=== PATIENT | male | born 1955 | race Caucasian/White ===

== ENCOUNTER → 2016-12-21 | Outpatient (CLI) | payer BC ==
[2016-12-21 08:40] LABS: ALT 35 U/L (21-72); AST 28 U/L (17-59); Cholesterol 143 mg/dL (<200); HDL Cholesterol 44 mg/dL (40-60); Triglycerides 73 mg/dL (<150)
== END | disposition home or self-care (01) ==
LOC: LABWHC1 07:51
PROVIDERS: ATTEND Internal Medicine Cardiovascular Disease
DX: E78.2 Mixed hyperlipidemia (principal)
CPT/HCPCS: 36415; 80061; 84450; 84460

== ENCOUNTER → 2018-01-10 | Outpatient (CLI) | payer BC ==
[2018-01-10 09:39] LABS: ALT 38 U/L (21-72); AST 24 U/L (17-59); Cholesterol 122 mg/dL (<200); HDL Cholesterol 41 mg/dL (40-60); LDL Cholesterol,Calculated 69 mg/dL (0-99); Triglycerides 58 mg/dL (<150)
== END | disposition home or self-care (01) ==
LOC: LABWHC1 08:23
PROVIDERS: ATTEND Internal Medicine Cardiovascular Disease
DX: E78.2 Mixed hyperlipidemia (principal)
CPT/HCPCS: 36415; 80061; 84450; 84460

== ENCOUNTER → 2019-01-28 | Outpatient (CLI) | payer BC ==
[2019-01-28 16:49] LABS: LDL Cholesterol,Calculated 93.2 mg/dL (0.0-131.0); VLDL Calculation 10.8 mg/dL (5.00-40.00)
== END | disposition home or self-care (01) ==
LOC: LABWHC1 08:53
PROVIDERS: ATTEND Internal Medicine Cardiovascular Disease
DX: E78.2 Mixed hyperlipidemia (principal)
CPT/HCPCS: 36415; 80061; 84450; 84460

== ENCOUNTER → 2020-06-23 | Outpatient (CLI) | payer BC ==
[2020-06-23 11:35] LABS: HCT 47.3 % (39.0-53.0); HGB 15.2 gm/dL (13.0-17.5); MCH 29.4 pg (25.0-35.0); MCHC 32.1 g/dL (31.0-37.0); MCV 91.6 fL (80.0-100.0); Mean Platelet Volume 7.2; Platelet Count 251 k/uL (150-450); RBC 5.17 m/uL (4.30-5.90); RDW 12.5 % (11.5-15.5)
[2020-06-23 11:41] LABS: African American GFR (CKD) >90 (>60 ml/min/1.73 sqM); Anion Gap 1 mmol/L; Blood Urea Nitrogen 18 mg/dL (9-20); Carbon Dioxide 32 mmol/L (22-30); Chloride 106 mmol/L (98-107); Non-African American GFR(CKD) 85 (>60 ml/min/1.73 sqM); Potassium 5.1 mmol/L (3.5-5.1); Sodium 139 mmol/L (137-145)
== END | disposition home or self-care (01) ==
LOC: LABPAT 09:28
PROVIDERS: ATTEND Internal Medicine Cardiovascular Disease
DX: Z01.818 Encounter for other preprocedural examination (principal); R06.02 Shortness of breath
CPT/HCPCS: 36415; 80051; 82565; 84520; 85027

== ENCOUNTER → 2020-06-24 | Day surgery (SDC) | payer BC ==
[2020-06-23 11:45] VITALS: BMI 26.3
[~2020-06-24] MED LIST: ALPRAZolam 0.25 MG TAB PO PRN; ALPRAZolam 0.5 MG TAB PO PRN; ASPIRIN 325 MG TAB PO STA; ATORVASTATIN 80 MG TAB PO STA; IOPAMIDOL-370 125ML BTL INJ ONE; LIDOCAINE 1% INJ 10MG/ML (20 ML MDV) SQ ONE; NITROGLYCERIN SL TABS 0.4 MG TAB SUBLINGUAL PRN; RX INFO: IV CONTRAST WAS GIVEN 1 EACH MISC MISCELLANE PRN; SODIUM CHLORIDE 0.9% 1,000 ML IV ONE; SODIUM CHLORIDE 0.9% 1,000 ML IV SCH; SODIUM CHLORIDE 0.9% 1,000 ML in EMPTY BAG 1 BAG IV ONE; fentaNYL (PF) 50 MCG/ML 2 ML AMP IVP ONE
[2020-06-24 09:49] VITALS: RESP 16; TEMP 97.9
[2020-06-24] MEDS: MIDAZOLAM 2 MG/2 ML VIAL IVP ONE ×2 (10:40→10:45)
--- NOTE | 2020-06-24 12:08 | CC ---
CARDIAC CATHETERIZATION REPORT INDICATION: Shortness of breath with abnormal stress test. PROCEDURE NOTE: After obtaining informed consent, left heart catheterization, coronary angiogram are performed via the right femoral artery using standard Fanny catheters. Patient tolerated the procedure well without any obvious immediate complication. A femoral angiogram was performed and decision was made for manual hemostasis. FINDINGS: 1. HEMODYNAMICS: Left ventricular end-diastolic pressure is 15 mm, there is no significant gradient across the aortic valve. 2. LEFT VENTRICULOGRAM: Left ventriculogram is not performed. 3. ANGIOGRAPHIC DATA: LEFT MAIN CORONARY ARTERY: left main coronary artery appears calcified but is free of significant stenosis. Divides into left anterior descending coronary artery and circumflex coronary artery. circumflex coronary artery is a nondominant vessel and is free of significant stenosis. LAD shows a 42% atherosclerotic plaque in its mid portion, which did not change significantly compared to the angiogram from 2016. RIGHT CORONARY ARTERY: Right coronary artery was stented in the proximal portion of the stented segment appears patent. CONCLUSION: 1. Patent stent within the right coronary artery. 2. Jeex-kt-ddcrhvoy disease involving mid LAD. PLAN: I reviewed angiographic data with the patient and told him that he does not need a stent and that his management is going to be in the form of risk factor modification, optimal medical therapy. MMODL / IJN: [id number] /
--- NOTE | 2020-06-24 12:13 | LTR ---
DATE OF SERVICE: 06/24/2020 RE: Chris Irizarry Dear Dr. Resendez; I performed cardiac catheterization on Chris Irizarry, a detailed catheterization note is enclosed for your records. In brief, the cardiac catheterization reveals a patent stent within the right coronary artery and the disease in the LAD is unchanged. Hence, the plan is to treat him with optimal medical therapy and risk factor modification. Thank you for giving us the privilege to participate in the care of this pleasant gentleman. Sincerely, MD JASON Santamaria / CARMELINA: [id number] /
[2020-06-24 15:30] VITALS: BP 115/71; PULSE 55
== END ==
LOC: CATHCVL 09:18
PROVIDERS: ATTEND Internal Medicine Cardiovascular Disease
DX: I25.10 Atherosclerotic heart disease of native coronary artery without angina pectoris (principal); I25.84 Coronary atherosclerosis due to calcified coronary lesion; I10 Essential (primary) hypertension; E78.5 Hyperlipidemia, unspecified; R94.39 Abnormal result of other cardiovascular function study; Z95.5 Presence of coronary angioplasty implant and graft; Z82.49 Family history of ischemic heart disease and other diseases of the circulatory system; Z87.891 Personal history of nicotine dependence; Z79.82 Long term (current) use of aspirin; Z79.899 Other long term (current) drug therapy; Z88.8 Allergy status to other drugs, medicaments and biological substances
CPT/HCPCS: 93458; C1769 ×2; C1894; J2250; J2001; J3010; Q9967

== ENCOUNTER 2020-11-19 11:55 | Observation (INO) | payer BC ==
[2020-11-19] MEDS ORDERED: SODIUM CHLORIDE 0.9% 500 ML 500 ML IV ONE (12:36)
[2020-11-19] MEDS ORDERED: SODIUM CHLORIDE 0.9% 1,000 ML IV ONE (12:36)
[2020-11-19] MEDS ORDERED: ACETAMINOPHEN TAB 500 MG TAB PO STA (12:36)
--- NOTE | 2020-11-19 12:37 | ED ---
General Adult HPI - General Chief complaint: Shortness of Breath Stated complaint: SOB, Fever Time Seen by Provider: 11/19/20 12:05 Source: patient, RN notes reviewed, old records reviewed Mode of arrival: wheelchair Limitations: no limitations - History of Present Illness Initial comments: This is a 65-year-old male who states he has been having symptoms for 14 days. Patient states his got cold about 18 days ago. Patient states he's had a cough and some shortness of breath complains of nausea and occasional abdominal pain. Patient states she's not nauseated now he is not having abdominal pain patient states he is not eating or drinking much because he lost his taste and smell. Patient states he just feels extremely fatigued and achy. Patient denies any lightheadedness or dizziness. Patient denies any chest pain or palpitations. Patient denies any diarrhea. - Related Data Home Medications Medication Instructions Recorded Confirmed Aspirin [Adult Low Dose Aspirin EC] 81 mg PO DAILY 06/23/20 11/19/20 Simvastatin 40 mg PO HS 06/23/20 11/19/20 Ibuprofen [Motrin Ib] 200 - 400 mg PO Q4H PRN 11/19/20 11/19/20 Losartan [Cozaar] 25 mg PO DAILY 11/19/20 11/19/20 Nitroglycerin Sl Tabs [Nitrostat] 0.4 mg SL Q5M PRN 11/19/20 11/19/20 Allergies Allergy/AdvReac Type Severity Reaction Status Date / Time venom-honey bee Allergy Severe Anaphylaxis Verified 11/19/20 13:07 Review of Systems ROS Statement: Those systems with pertinent positive or pertinent negative responses have been documented in the HPI. ROS Other: All systems not noted in ROS Statement are negative. Past Medical History Past Medical History: Eye Disorder, GERD/Reflux, Hypertension Additional Past Medical History / Comment(s): 08/26/15 Pt presented to [facility] with having been at work that morning and having tingling and weakness to BUE along with chest tightness and feeling hot and sweaty and mildly nauseated. He transferred to [facility] for catheterization. Other HX: extreme phtophobia bilateral xerophtalmia. History of Any Multi-Drug Resistant Organisms: None Reported Past Surgical History: Heart Catheterization With Stent Additional Past Surgical History / Comment(s): 1/21/16 PTCA with stent mid RCA. Past Anesthesia/Blood Transfusion Reactions: No Reported Reaction Date of Last Stent Placement:: 08/27/15 Past Psychological History: No Psychological Hx Reported Past Alcohol Use History: None Reported Past Drug Use History: None Reported - Past Family History Father Family Medical History: Diabetes Mellitus, Hypertension Additional Family Medical History / Comment(s): Father is alive and 82 yrs old. He has an abdominal aortic aneurysm. Mother Family Medical History: Diabetes Mellitus, Hyperlipidemia Additional Family Medical History / Comment(s): Mother is alive and in her late 70's. General Exam - General Exam Comments Initial Comments: GENERAL: Patient is well-developed and well-nourished. Patient is nontoxic and well- hydrated and is in mild distress. ENT: Neck is soft and supple. No significant lymphadenopathy is noted. Oropharynx is clear. Moist mucous membranes. Neck has full range of motion without eliciting any pain. EYES: The sclera were anicteric and conjunctiva were pink and moist. Extraocular movements were intact and pupils were equal round and reactive to light. Eyelids were unremarkable. PULMONARY: Unlabored respirations. Good breath sounds bilaterally. No audible rales rhonchi or wheezing was noted. CARDIOVASCULAR: There is a regular rate and rhythm without any murmurs gallops or rubs. ABDOMEN: Soft and nontender with normal bowel sounds. No palpable organomegaly was noted. There is no palpable pulsatile mass. SKIN: Skin is clear with no lesions or rashes and otherwise unremarkable. NEUROLOGIC: Patient is alert and oriented x3. Cranial nerves II through XII are grossly intact. Motor and sensory are also intact. Normal speech, volume and content. Symmetrical smile. MUSCULOSKELETAL: Normal extremities with adequate strength and full range of motion. LYMPHATICS: No significant lymphadenopathy is noted PSYCHIATRIC: Normal psychiatric evaluation. Limitations: no limitations Course Vital Signs 11/19/20 11/19/20 12:05 15:59 Temperature 98.2 F Pulse Rate 73 64 Respiratory 21 18 Rate Blood Pressure 146/89 123/82 O2 Sat by Pulse 97 97 Oximetry Medical Decision Making - Medical Decision Making EKG shows normal sinus rhythm at 73 bpm OR interval 222 QRS is 76 QT interval 394 QTC is 434. Patient's EKG shows no ST segment elevation or depression Chest x-ray shows opacification some bilateral lower lobes. Computed tomography scan did not show any pulmonary embolism however it showed a consolidated right middle lobe pneumonia versus significant atelectasis. I started the patient on antibiotics. I spoke with Dr. Resendez he agreed to admit the patient admitted the patient I wrote admit orders I consult pulmonary - Lab Data Result diagrams: 11/19/20 12:46 11/19/20 12:46 Lab Results 11/19/20 11/19/20 11/19/20 Range/Units 12:46 12:46 12:46 WBC 4.8 (3.8-10.6) k/uL RBC 5.54 (4.30-5.90) m/uL Hgb 16.3 (13.0-17.5) gm/dL Hct 49.6 (39.0-53.0) % MCV 89.6 (80.0-100.0) fL MCH 29.5 (25.0-35.0) pg MCHC 32.9 (31.0-37.0) g/dL RDW 12.7 (11.5-15.5) % Plt Count 180 (150-450) k/uL MPV 8.7 Neutrophils % 52 % Lymphocytes % 36 % Monocytes % 7 % Eosinophils % 1 % Basophils % 2 % Neutrophils # 2.5 (1.3-7.7) k/uL Lymphocytes # 1.7 (1.0-4.8) k/uL Monocytes # 0.3 (0-1.0) k/uL Eosinophils # 0.0 (0-0.7) k/uL Basophils # 0.1 (0-0.2) k/uL D-Dimer (<0.60) mg/L FEU Sodium 137 (137-145) mmol/L Potassium 4.2 (3.5-5.1) mmol/L Chloride 102 (98-107) mmol/L Carbon Dioxide 24 (22-30) mmol/L Anion Gap 11 mmol/L BUN 14 (9-20) mg/dL Creatinine 1.02 (0.66-1.25) mg/dL Est GFR (CKD-EPI)AfAm >90 (>60 ml/min/1.73 sqM) Est GFR (CKD-EPI)NonAf 78 (>60 ml/min/1.73 sqM) Glucose 97 (74-99) mg/dL Plasma Lactic Acid Jean-Claude (0.7-2.0) mmol/L Calcium 9.0 (8.4-10.2) mg/dL Magnesium 2.1 (1.6-2.3) mg/dL Total Bilirubin 0.8 (0.2-1.3) mg/dL AST 53 (17-59) U/L ALT 36 (4-49) U/L Alkaline Phosphatase 82 (38-126) U/L Total Protein 6.9 (6.3-8.2) g/dL Albumin 4.1 (3.5-5.0) g/dL Coronavirus (PCR) Detected A (Not Detectd) 11/19/20 11/19/20 Range/Units 12:46 15:20 WBC (3.8-10.6) k/uL RBC (4.30-5.90) m/uL Hgb (13.0-17.5) gm/dL Hct (39.0-53.0) % MCV (80.0-100.0) fL MCH (25.0-35.0) pg MCHC (31.0-37.0) g/dL RDW (11.5-15.5) % Plt Count (150-450) k/uL MPV Neutrophils % % Lymphocytes % % Monocytes % % Eosinophils % % Basophils % % Neutrophils # (1.3-7.7) k/uL Lymphocytes # (1.0-4.8) k/uL Monocytes # (0-1.0) k/uL Eosinophils # (0-0.7) k/uL Basophils # (0-0.2) k/uL D-Dimer 1.03 H (<0.60) mg/L FEU Sodium (137-145) mmol/L Potassium (3.5-5.1) mmol/L Chloride (98-107) mmol/L Carbon Dioxide (22-30) mmol/L Anion Gap mmol/L BUN (9-20) mg/dL Creatinine (0.66-1.25) mg/dL Est GFR (CKD-EPI)AfAm (>60 ml/min/1.73 sqM) Est GFR (CKD-EPI)NonAf (>60 ml/min/1.73 sqM) Glucose (74-99) mg/dL Plasma Lactic Acid Jean-Claude 1.5 (0.7-2.0) mmol/L Calcium (8.4-10.2) mg/dL Magnesium (1.6-2.3) mg/dL Total Bilirubin (0.2-1.3) mg/dL AST (17-59) U/L ALT (4-49) U/L Alkaline Phosphatase (38-126) U/L Total Protein (6.3-8.2) g/dL Albumin (3.5-5.0) g/dL Coronavirus (PCR) (Not Detectd) Disposition Clinical Impression: Pneumonia, COVID-19 Disposition: ADMITTED IP TO THIS HOSP Referrals: Renaldo Resendez DO [Primary Care Provider] - 1-2 days Time of Disposition: 16:29
[2020-11-19 13:21] LABS: Basophils # (A) 0.1 k/uL (0-0.2); Basophils % (A) 2 %; Eosinophils % (A) 1 %; HCT 49.6 % (39.0-53.0); HGB 16.3 gm/dL (13.0-17.5); Lymphocytes # (A) 1.7 k/uL (1.0-4.8); Lymphocytes % (A) 36 %; MCH 29.5 pg (25.0-35.0); MCHC 32.9 g/dL (31.0-37.0); MCV 89.6 fL (80.0-100.0); Mean Platelet Volume 8.7; Monocytes # (A) 0.3 k/uL (0-1.0); Monocytes % (A) 7 %; Neutrophils # (A) 2.5 k/uL (1.3-7.7); Neutrophils % (A) 52 %; Platelet Count 180 k/uL (150-450); RBC 5.54 m/uL (4.30-5.90); RDW 12.7 % (11.5-15.5); WBC 4.8 k/uL (3.8-10.6)
[2020-11-19 13:39] LABS: ALT 36 U/L (4-49); AST 53 U/L (17-59); African American GFR (CKD) >90 (>60 ml/min/1.73 sqM); Albumin 4.1 g/dL (3.5-5.0); Alkaline Phosphatase 82 U/L (38-126); Anion Gap 11 mmol/L; Blood Urea Nitrogen 14 mg/dL (9-20); Carbon Dioxide 24 mmol/L (22-30); Chloride 102 mmol/L (98-107); Glucose 97 mg/dL (74-99); Magnesium 2.1 mg/dL (1.6-2.3); Non-African American GFR(CKD) 78 (>60 ml/min/1.73 sqM); Potassium 4.2 mmol/L (3.5-5.1); Sodium 137 mmol/L (137-145); Total Bilirubin 0.8 mg/dL (0.2-1.3); Total Protein 6.9 g/dL (6.3-8.2)
--- NOTE | 2020-11-19 13:43 | XR ---
EXAMINATION TYPE: XR chest 1V portable DATE OF EXAM: 11/19/2020 COMPARISON: NONE HISTORY: Redness of breath and fever TECHNIQUE: Single frontal view of the chest is obtained. FINDINGS: Patchy airspace disease is present at the right lung. Patient is rotated. No evident pneum othorax or pleural effusion. Cardiac mediastinal silhouette is within normal limits. IMPRESSION: Correlate for pneumonia, follow-up suggested
--- NOTE | 2020-11-19 14:55 | CT ---
EXAMINATION TYPE: CT chest angio for PE DATE OF EXAM: 11/19/2020 COMPARISON: Chest x-ray earlier today HISTORY: Difficulty breathing and fever. CT DLP: 352.8 mGycm Automated exposure control for dose reduction was used. CONTRAST: CT Chest for pulmonary embolism performed with with IV Contrast, patient injected with 100 mL of Isov ue 370. FINDINGS: LUNGS: Right lower lobe shows extensive groundglass opacity and organizing consolidation. Left lung i s clear. No pleural effusion or pneumothorax seen bilaterally. MEDIASTINUM: There is slightly suboptimal study with some contrast in the aorta most dense contrast i n the SVC. There becomes some heterogeneity in the periphery but no convincing CT evidence for acute pulmonary embolism. There are enlarged right hilar lymph nodes may be reactive. No pericardial effu milton is seen. No cardiomegaly. [id number] right atrial dilatation. Moderate to severe three-ve ssel coronary artery calcification. Ascending aorta measures up to 3.8 cm in diameter. OTHER: No additional significant abnormality is seen. IMPRESSION: Right lower lobar pneumonia. Suboptimal study without acute pulmonary embolism.
[2020-11-19] MEDS ORDERED: cefTRIAXone IN SWFI 1,000 MG/10 ML SYRINGE IVP STA (15:07)
[2020-11-19] MEDS ORDERED: AZITHROMYCIN 500 MG in SODIUM CHLORIDE 0.9% 250 ML IVPB STA (16:29)
[2020-11-19] MEDS ORDERED: PNEUMONIA PROTOCOL UTILIZED 1 EACH MISC PO PRN (16:29)
--- NOTE | 2020-11-20 08:05 | XR ---
EXAMINATION TYPE: XR chest 1V DATE OF EXAM: 11/20/2020 COMPARISON: 11/20/2019 HISTORY: Shortness of breath TECHNIQUE: Single frontal view of the chest is obtained. FINDINGS: Right perihilar subsegmental infiltrate noted. There is a nodular 1 cm density in the left upper lobe. No pleural effusion or pneumothorax. Heart size normal. Increased interstitial markings suggested. IMPRESSION: Right perihilar and lower lobe pneumonia. Correlate for superimposed interstitial pneumon itis
[2020-11-20] MEDS ORDERED: NITROGLYCERIN SL TABS 0.4 MG TAB SUBLINGUAL PRN (11:05)
--- NOTE | 2020-11-20 11:18 | P.HPIM ---
History of Present Illness H&P Date: 11/20/20 Chief Complaint: Worsening shortness of breath, fatigue, headache, body aches This is a 65-year-old gentleman with past medical history of CAD, CO, stent to the mid RCA , hypertension ,gastroesophageal reflux disease, hypertension, former nicotine dependence and multiple other medical issues presented to the ER with complaints of worsening shortness of breath, fatigue, headache, body aches 2 weeks. Reports no cough, no fevers. Positive nausea, no vomiting or diarrhea. States his has been symptomatic for 3 weeks ago. His received BAM, he did not. He reports decreased appetite, loss of taste and loss of smell. Denies any lightheadedness dizziness or focal deficits. Denies any chest pain palpitations or shortness of breath. EKG reported sinus rhythm . Afebrile, normal WBC, maintaining O2 sats in the low to mid 90s on room air, respiratory rate 16-20, mild bradycardia. Hematology and chemistry panels unremarkable. D-dimer 1.03, coronavirus detected. Chest x-ray reporting patchy airspace disease in the right lung.Chest CTA suboptimal study reporting right lower lobe pneumonia, right lower lobe reporting extensive groundglass opacity and organizing consolidation,some contrast in the aorta most dense contrast in the SVC , no PE , enlarged right hilar lymph nodes possibly reactive, [id number] right atrial dilation, moderate to severe 3 vessel CAD, ascending aorta 3.8 cm. repeat chest x-ray reporting right perihilar subsegmental infiltrate noted, nodular 1 cm density in the left upper lobe, increased interstitial markings. Pneumonia protocol initiated including Rocephin and Zithromax along with IV fluid hydration. Review of Systems ROS Statement: Those systems with pertinent positive or pertinent negative responses have been documented in the HPI. ROS Other: All systems not noted in ROS Statement are negative. Past Medical History Past Medical History: Eye Disorder, GERD/Reflux, Hypertension Additional Past Medical History / Comment(s): 08/26/15 Pt presented to [facility] with having been at work that morning and having tingling and weakness to BUE along with chest tightness and feeling hot and sweaty and mildly nauseated. He transferred to [facility] for catheterization. Other HX: extreme photophobia bilateral xerophtalmia. History of Any Multi-Drug Resistant Organisms: None Reported Past Surgical History: Heart Catheterization With Stent Additional Past Surgical History / Comment(s): 08/27/15 PTCA with stent mid RCA. Past Anesthesia/Blood Transfusion Reactions: No Reported Reaction Date of Last Stent Placement:: 08/27/15 Past Psychological History: No Psychological Hx Reported Additional Psychological History / Comment(s): Pt resides with his spouse. He is independent. He uses no assistive device. He drives. Smoking Status: Former smoker Past Alcohol Use History: None Reported Past Drug Use History: None Reported - Past Family History Father Family Medical History: Diabetes Mellitus, Hypertension Additional Family Medical History / Comment(s): Father is alive and 82 yrs old. He has an abdominal aortic aneurysm. Mother Family Medical History: Diabetes Mellitus, Hyperlipidemia Additional Family Medical History / Comment(s): Mother is alive and in her late 70's. Medications and Allergies Home Medications Medication Instructions Recorded Confirmed Type Aspirin [Adult Low Dose Aspirin EC] 81 mg PO DAILY 06/23/20 11/19/20 History Simvastatin 40 mg PO HS 06/23/20 11/19/20 History Ibuprofen [Motrin Ib] 200 - 400 mg PO Q4H PRN 11/19/20 11/19/20 History Losartan [Cozaar] 25 mg PO DAILY 11/19/20 11/19/20 History Nitroglycerin Sl Tabs [Nitrostat] 0.4 mg SL Q5M PRN 11/19/20 11/19/20 History Allergies Allergy/AdvReac Type Severity Reaction Status Date / Time venom-honey bee Allergy Severe Anaphylaxis Verified 11/19/20 17:19 Physical Exam Vitals: Vital Signs Temp Pulse Pulse Pulse Resp BP BP 11/20/20 09:06 11/20/20 08:00 56 L 56 L 18 11/20/20 07:00 97.9 F 56 L 18 124/79 11/20/20 02:24 98.5 F 62 16 124/73 11/19/20 19:25 98.0 F 56 L 20 136/80 11/19/20 17:30 11/19/20 15:59 64 18 123/82 11/19/20 12:05 98.2 F 73 21 146/89 Pulse Ox 11/20/20 09:06 92 L 11/20/20 08:00 11/20/20 07:00 92 L 11/20/20 02:24 96 11/19/20 19:25 94 L 11/19/20 17:30 95 11/19/20 15:59 97 11/19/20 12:05 97 Intake and Output 11/19/20 11/20/20 11/20/20 22:59 06:59 14:59 Other: Voiding Method Toilet Toilet Urinal Urinal # Voids 1 1 1 Weight 90.718 kg PHYSICAL EXAM: VITAL SIGNS: As above GENERAL: Sitting up in bed, no acute distress, fatigued HEENT: Conjunctivae normal. eyes normal. NECK: No JVD. No thyroid enlargement. No LNs CARDIOVASCULAR: S1, S2 regular. No murmur RESPIRATION: Unlabored, Breath sounds diminished in the bases. No rhonchi or crackles. No bronchial breathing. ABDOMEN: Soft, nontender . No guarding. no masses palpable. No ascites, No hepatosplenomegaly.Bowel sounds heard. LEGS: No edema. no swelling PSYCHIATRY: Alert and oriented X3, mood and affect normal. NERVOUS SYSTEM: Cranial N 2-12 grossly normal. Moves all 4 limbs. Diffuse we akness No focal deficits. Strength and sensation grossly intact.. Skin: Warm and dry, no rash Results CBC & Chem 7: 11/19/20 12:46 11/19/20 12:46 Labs: Abnormal Lab Results - Last 24 Hours (Table) 11/19/20 11/19/20 Range/Units 12:46 12:46 D-Dimer 1.03 H (<0.60) mg/L FEU Coronavirus (PCR) Detected A (Not Detectd) Thrombosis Risk Factor Assmnt - Choose All That Apply Any of the Below Risk Factors Present?: Yes Each Factor Represents 1 point: Obesity (BMI >25), Serious lung disease incl. pneumonia (< 1month) Other Risk Factors: Yes Each Risk Factor Represents 2 Points: Age 61-74 years Other congenital or acquired thrombophilia - If yes, enter type in comment: No Thrombosis Risk Factor Assessment Total Risk Factor Score: 4 Thrombosis Risk Factor Assessment Level: Moderate Risk Assessment and Plan Assessment: COVID-19 pneumonia, superimposed interstitial pneumonitis,symptoms present 2 weeks. CTA reporting no PE, positive right lower lobe consolidation Nodular 1 cm density in left upper lobe reported per chest X Prior remote history of nicotine dependence Gastroesophageal reflux disease Hypertension CAD, history of CO and stent [id number] right atrial dilation, moderate to severe 3 vessel CAD, per CTA ascending aorta 3.8 cm. Plan:Continue on current medication regime ,monitoring and symptomatic treatment. Continue on antibiotics, Covid cocktail ordered. Pulmonary consult in place regarding abnormal CT with recommendations pending. CTA reporting moderate to severe 3 vessel CAD, echo ordered. The impression and plan of care has been dictated as directed. : I performed a history and examination of this patient, discussed the same with the dictator. I agree with the dictator's note ,documented as a scribe. Any additional findings or plans will be noted.
[2020-11-20] MEDS: ZINC SULFATE 220 MG CAP PO SCH (11:34)
[2020-11-20] MEDS: PANTOPRAZOLE 40 MG/10 ML VIAL IVP SCH (11:34)
[2020-11-20] MEDS: CHOLECALCIFEROL 25 MCG (1000 IU) TABLET PO SCH (11:34)
[2020-11-20] MEDS: DEXAMETHASONE SOD PHOSPHATE 10 MG/ML 1 ML VIAL IV SCH (11:34)
[2020-11-20] MEDS: ASCORBIC ACID 500 MG TAB PO SCH ×2 (11:35→20:48)
--- NOTE | 2020-11-20 11:55 | ECHOF ---
Referral Reason:lv fx MEASUREMENTS -------- HEIGHT: 177.8 cm WEIGHT: 90.7 kg BP: 124/79 RVIDd: 3.0 cm (< 3.3) IVSd: 1.2 cm (0.6 - 1.1) LVIDd: 4.1 cm (3.9 - 5.3) LVPWd: 1.1 cm (0.6 - 1.1) IVSs: 1.7 cm LVIDs: 2.6 cm LVPWs: 1.3 cm LA Diam: 3.2 cm (2.7 - 3.8) Ao Diam: 3.6 cm (2.0 - 3.7) AV Cusp: 2.5 cm (1.5 - 2.6) MV EXCURSION: 14.577 mm (> 18.000) MV EF SLOPE: 59 mm/s (70 - 150) EPSS: 0.5 cm MV E Robson: 0.74 m/s MV DecT: 305 ms MV A Robson: 0.58 m/s MV E/A Ratio: 1.27 RAP: 5.00 mmHg RVSP: 35.07 mmHg FINDINGS -------- Sinus rhythm. This was a technically adequate study. The left ventricular size is normal. There is borderline concentric left ventricular hypertrophy. Overall left ventricular systolic function is normal with, an EF between 60 - 65 %. The right ventricle is normal in size. The left atrium is normal in size. The right atrium is normal in size. Interatrial and interventricular septum intact. There is mild aortic regurgitation. Mild mitral regurgitation is present. Mild tricuspid regurgitation present. Right ventricular systolic pressure is normal at < 35 mmHg. There is no pulmonic regurgitation present. The aortic root size is normal. Normal inferior vena cava with normal inspiratory collapse consistent with estimated right atrial pre ssure of 5 mmHg. There is no pericardial effusion. CONCLUSIONS -------- 1. The left ventricular size is normal. 2. There is borderline concentric left ventricular hypertrophy. 3. Overall left ventricular systolic function is normal with, an EF between 60 - 65 %. 4. There is mild aortic regurgitation. 5. Mild mitral regurgitation is present. 6. Mild tricuspid regurgitation present. 7. There is no pericardial effusion. SENIOR QUALITY MANAGER: Kami Ortiz [facility]
[2020-11-20 13:42] VITALS: BMI 28.7
[2020-11-20] MEDS: INSULIN ASPART (NovoLOG) 100 UNIT/ML VIAL SQ SCH ×3 (14:14→20:48)
[2020-11-20] MEDS ORDERED: AZITHROMYCIN 500 MG TAB PO SCH (16:00)
[2020-11-20 16:52] LABS: Glucose,Whole Blood 152 mg/dL (75-99)
--- NOTE | 2020-11-20 17:46 | P.CNPUL ---
History of Present Illness Consult date: 11/20/20 Reason for consult: hypoxemia History of present illness: 65-year-old male patient, multiple comorbidities, presented with worsening shortness of breath, fatigue and headache and body aches for more than 2 weeks of duration. He also had some nausea without any emesis or diarrhea. His been symptomatically for at least 3 weeks. His was also symptomatic and she received the monoclonal anti-bodies. The patient himself did not receive any treatment. He comes into the hospital for worsening shortness of breath and other symptoms. His d-dimer is at 1.03. His inflammatory markers have not been checked. LFTs are normal, white cell count is normal, electrolytes are all within normal limits. Chest x-ray showing some limited perihilar pulmonary infiltrates worse on the right. Currently patient is on oxygen on room air. The CT angiogram was also done that showed noted 70 pulmonary embolism. There was right lower lobe pulmonary infiltrate/groundglass changes along with some areas of consolidation. Some enlarged right hilar lymph node was seen, likely reactive. Among the patient's comorbid conditions are CAD, hypertension, acid reflux, and hyperlipidemia. Review of Systems Constitutional: Reports fatigue, Reports poor appetite, Reports weakness Eyes: denies as per HPI, denies blurred vision, denies bulging eye, denies decreased vision, denies diplopia, denies discharge, denies dry eye, denies irritation, denies itching, denies pain, denies photophobia, denies loss of peripheral vision, denies loss of vision, denies tunnel vision/blind spots Ears: deny: decreased hearing, ear discharge, earache, tinnitus Ears, nose, mouth and throat: Reports as per HPI Breasts: absent: as per HPI, gynecomastia Cardiovascular: Reports dyspnea on exertion Respiratory: Reports cough, Reports dyspnea Gastrointestinal: Reports as per HPI, Reports nausea Genitourinary: Reports as per HPI Musculoskeletal: Reports as per HPI Musculoskeletal: absent: ankle pain, ankle stiffness, ankle swelling, as per HPI, elbow pain, elbow stiffness, elbow swelling, foot pain, foot stiffness, foot swelling, hand pain, hand stiffness, hand swelling, hip pain, hip stiffness, hip swelling, knee pain, knee stiffness, knee swelling, shoulder pain, shoulder stiffness, shoulder swelling, wrist pain, wrist stiffness, wrist swelling Integumentary: Reports as per HPI Neurological: Reports as per HPI Psychiatric: Reports as per HPI Endocrine: Reports fatigue Hematologic/Lymphatic: Reports as per HPI Allergic/Immunologic: Reports as per HPI Past Medical History Past Medical History: Eye Disorder, GERD/Reflux, Hypertension Additional Past Medical History / Comment(s): 08/26/15 Pt presented to [facility] with having been at work that morning and having tingling and weakness to BUE along with chest tightness and feeling hot and sweaty and mildly nauseated. He transferred to [facility] for catheterization. Other HX: extreme photophobia bilateral xerophtalmia. History of Any Multi-Drug Resistant Organisms: None Reported Past Surgical History: Heart Catheterization With Stent Additional Past Surgical History / Comment(s): 08/27/15 PTCA with stent mid RCA. Past Anesthesia/Blood Transfusion Reactions: No Reported Reaction Date of Last Stent Placement:: 08/27/15 Past Psychological History: No Psychological Hx Reported Additional Psychological History / Comment(s): Pt resides with his spouse. He is independent. He uses no assistive device. He drives. Smoking Status: Former smoker Past Alcohol Use History: None Reported Past Drug Use History: None Reported - Past Family History Father Family Medical History: Diabetes Mellitus, Hypertension Additional Family Medical History / Comment(s): Father is alive and 82 yrs old. He has an abdominal aortic aneurysm. Mother Family Medical History: Diabetes Mellitus, Hyperlipidemia Additional Family Medical History / Comment(s): Mother is alive and in her late 70's. Medications and Allergies Home Medications Medication Instructions Recorded Confirmed Type Aspirin [Adult Low Dose Aspirin EC] 81 mg PO DAILY 06/23/20 11/19/20 History Simvastatin 40 mg PO HS 06/23/20 11/19/20 History Ibuprofen [Motrin Ib] 200 - 400 mg PO Q4H PRN 11/19/20 11/19/20 History Losartan [Cozaar] 25 mg PO DAILY 11/19/20 11/19/20 History Nitroglycerin Sl Tabs [Nitrostat] 0.4 mg SL Q5M PRN 11/19/20 11/19/20 History Allergies Allergy/AdvReac Type Severity Reaction Status Date / Time venom-honey bee Allergy Severe Anaphylaxis Verified 11/19/20 17:19 Physical Exam Vitals: Vital Signs Temp Pulse Pulse Resp BP Pulse Ox 11/20/20 15:00 97.7 F 66 20 176/79 95 04/16/21 14:00 56 L 56 L 18 11/20/20 09:06 92 L 11/20/20 08:00 56 L 56 L 18 11/20/20 07:00 97.9 F 56 L 18 124/79 92 L 11/20/20 02:24 98.5 F 62 16 124/73 96 11/19/20 19:25 98.0 F 56 L 20 136/80 94 L 11/19/20 17:30 95 Intake and Output 11/20/20 11/20/20 11/20/20 06:59 14:59 22:59 Other: Voiding Method Toilet Urinal # Voids 1 2 Weight 90.718 kg GENERAL: Sitting up in bed, no acute distress, fatigued HEENT: Conjunctivae normal. eyes normal. NECK: No JVD. No thyroid enlargement. No LNs CARDIOVASCULAR: S1, S2 regular. No murmur RESPIRATION: Unlabored, Breath sounds diminished in the bases. No rhonchi or crackles. No bronchial breathing. ABDOMEN: Soft, nontender . No guarding. no masses palpable. No ascites, No hepatosplenomegaly.Bowel sounds heard. LEGS: No edema. no swelling PSYCHIATRY: Alert and oriented X3, mood and affect normal. NERVOUS SYSTEM: Cranial N 2-12 grossly normal. Moves all 4 limbs. Diffuse weakness No focal deficits. Strength and sensation grossly intact.. Skin: Warm and dry, no rash Results - Laboratory Findings CBC and BMP: 11/19/20 12:46 11/19/20 12:46 PT/INR, D-dimer D-Dimer 1.03 mg/L FEU (<0.60) H 11/19/20 12:46 Abnormal lab findings: Abnormal Labs 11/19/20 11/19/20 12:46 12:46 D-Dimer 1.03 H Coronavirus (PCR) Detected A - Diagnostic Findings Chest x-ray: image reviewed CT scan - chest: image reviewed Assessment and Plan Plan: 1 acute COVID-19 related pneumonia. Symptoms have started more than 3 weeks ago and the patient has been symptomatic since. The patient presented with worsening shortness of breath. There are bilateral ground glass pulmonary infiltrates with areas of consolidation worse in the right lower lobe area. Chest x-ray was noted. CT angiogram of the chest was noted. No evidence of any pulmonary embolism 2 left upper lobe pulmonary nodule, more so of an infiltrate or an area of groundglass change related to the pneumonia. This needs to be followed up with a later stage. I think this is related to the COVID-19 related pneumonia rather than malignancy. 3 coronary artery disease with previous DE and previous coronary stenting. 4 ascending aorta aneurysm measuring 3.8 cm in size 5 hypertension 6 hyperlipidemia 7 remote history of smoking Plan Patient has no major respiratory distress. Pulse ox on room air is no order of 95%. He does have bilateral groundglass pulmonary infiltrates. We'll give him a course of Decadron 6 with aggressive by mouth for the next 10 days. The left upper lobe pulmonary nodule is of no significance for now. This is to be monitored and a follow-up CAT scan of the chest can be done in 6 months time Lovenox 40 mg subcu for DVT prophylaxis Check pro-calcitonin level knowing that the infiltrate in the CAT scan of the chest is more so on the lobar distribution I think the antibiotics can be discontinued Discharge once stable and cleared by medicine. Oxygenation is being monitored for the next 24 hours here in the hospital.
[2020-11-20 20:24] LABS: Glucose,Whole Blood 157 mg/dL (75-99)
[2020-11-21 07:38] LABS: Glucose,Whole Blood 127 mg/dL (75-99)
[2020-11-21] MEDS: INSULIN ASPART (NovoLOG) 100 UNIT/ML VIAL SQ SCH ×2 (07:48→12:09)
[2020-11-21] MEDS: ASCORBIC ACID 500 MG TAB PO SCH (07:53)
[2020-11-21] MEDS: CHOLECALCIFEROL 25 MCG (1000 IU) TABLET PO SCH (07:53)
[2020-11-21] MEDS: DEXAMETHASONE SOD PHOSPHATE 10 MG/ML 1 ML VIAL IV SCH (07:53)
[2020-11-21] MEDS: ZINC SULFATE 220 MG CAP PO SCH (07:56)
[2020-11-21] MEDS: PANTOPRAZOLE 40 MG/10 ML VIAL IVP SCH (07:56)
[2020-11-21 08:19] VITALS: BP 118/76; PULSE 74; RESP 16; TEMP 97.7
[2020-11-21 11:54] LABS: Glucose,Whole Blood 150 mg/dL (75-99)
== END 2020-11-21 14:05 | disposition home or self-care (01) ==
LOC: EC 11:55 → 6NMEDSUR 16:38
PROVIDERS: ADMIT Family Medicine; ATTEND Family Medicine
DX: U07.1 COVID-19 (principal); J12.82 Pneumonia due to coronavirus disease 2019; K21.9 Gastro-esophageal reflux disease without esophagitis; I10 Essential (primary) hypertension; I25.10 Atherosclerotic heart disease of native coronary artery without angina pectoris; J84.89 Other specified interstitial pulmonary diseases; E78.5 Hyperlipidemia, unspecified; R59.0 Localized enlarged lymph nodes; I25.2 Old myocardial infarction; H53.143 Visual discomfort, bilateral; E66.9 Obesity, unspecified; Z68.28 Body mass index [BMI] 28.0-28.9, adult; Z79.82 Long term (current) use of aspirin; Z79.899 Other long term (current) drug therapy; Z91.030 Bee allergy status; Z87.891 Personal history of nicotine dependence; Z95.5 Presence of coronary angioplasty implant and graft; Z82.49 Family history of ischemic heart disease and other diseases of the circulatory system; Z83.3 Family history of diabetes mellitus
CPT/HCPCS: 96376; 96365; 96367; 96375 ×2; 96361; 99285; 36415; 94760; 93005; 93306; 85379; 80053; 83605; 83735; 85025; 87040; 84145; 87635; 71045 ×2; 71275; G0378 ×3; J1100 ×2; J0456; J0696 ×2; C9113 ×2; Q9967

== ENCOUNTER → 2021-06-04 | Outpatient (CLI) | payer BC ==
[2021-06-04 15:19] LABS: Chol/HDL Ratio 3.37 Ratio; LDL Cholesterol,Calculated 103.8 mg/dL (0.0-131.0); Triglycerides 60.8 mg/dL (0.00-149.00); VLDL Calculation 12.16 mg/dL (5.00-40.00)
== END | disposition home or self-care (01) ==
LOC: LABWHC1 09:00
PROVIDERS: ATTEND Internal Medicine Cardiovascular Disease
DX: E78.2 Mixed hyperlipidemia (principal)
CPT/HCPCS: 36415; 80061; 84450; 84460

== ENCOUNTER → 2023-06-20 | Outpatient (CLI) | payer BC ==
[2023-06-20 15:27] LABS: HCT 47.6 % (39.6-50.0); HGB 15.5 g/dL (13.0-17.0); MCH 29.8 pg (27.0-32.0); MCHC 32.6 g/dL (32.0-37.0); MCV 91.5 FL (80.0-97.0); Mean Platelet Volume 10.8 FL (9.5-12.2); NRBC Per 100 WBC 0 X 10*3/uL (0.00-0.01); Platelet Count 245 X 10*3/uL (140-440); WBC 7.12 X 10*3/uL (4.50-10.00)
[2023-06-20 15:36] LABS: ALT 20 U/L (10-49); AST 20 U/L (14-35); BUN/Creat Ratio 13.22 Ratio (12.00-20.00); Blood Urea Nitrogen 11.9 mg/dL (9.0-27.0); Calcium 9.7 mg/dL (8.7-10.3); Chloride 105 mmol/L (96-109); Chol/HDL Ratio 3.31 Ratio; Glucose 103 mg/dL (70-110); LDL Cholesterol,Calculated 95.6 mg/dL (0.0-131.0); Potassium 4.8 mmol/L (3.5-5.5); Sodium 141 mmol/L (135-145); VLDL Calculation 14.74 mg/dL (5.00-40.00)
== END | disposition home or self-care (01) ==
LOC: LABWHC1 11:15
PROVIDERS: ATTEND Family Medicine
DX: Z00.00 Encounter for general adult medical examination without abnormal findings (principal); E78.2 Mixed hyperlipidemia; R07.2 Precordial pain
CPT/HCPCS: 36415; 80048; 80061; 84450; 84460; 85027

== ENCOUNTER 2023-06-23 05:56 | Day surgery (SDC) | payer BC, MEDICARE ==
[~2023-06-23 05:56] MED LIST changes: -IOPAMIDOL-370 125ML BTL INJ ONE; -LIDOCAINE 1% INJ 10MG/ML (20 ML MDV) SQ ONE; -RX INFO: IV CONTRAST WAS GIVEN 1 EACH MISC MISCELLANE PRN; -SODIUM CHLORIDE 0.9% 1,000 ML IV ONE; -SODIUM CHLORIDE 0.9% 1,000 ML IV SCH; -SODIUM CHLORIDE 0.9% 1,000 ML in EMPTY BAG 1 BAG IV ONE; -fentaNYL (PF) 50 MCG/ML 2 ML AMP IVP ONE
[2023-06-23] MEDS ORDERED: SODIUM CHLORIDE 0.9% 1,000 ML in EMPTY BAG 1 BAG IV SCH (06:00)
[2023-06-23] MEDS ORDERED: SODIUM CHLORIDE 0.9% 1,000 ML IV ONE (06:12)
[2023-06-23 06:30] VITALS: RESP 16; TEMP 97.7
[2023-06-23] MEDS ORDERED: HEPARIN SODIUM,PORCINE 10,000 UNIT in SODIUM CHLORIDE 0.9% 1,000 ML IRRIGATION PRN (07:00)
[2023-06-23] MEDS ORDERED: HEPARIN SODIUM,PORCINE (1 ML) 2,500 UNIT in SODIUM CHLORIDE 0.9% 250 ML IRRIGATION PRN (07:00)
[2023-06-23] MEDS ORDERED: MIDAZOLAM 2 MG/2 ML VIAL IVP ONE (07:36)
[2023-06-23] MEDS ORDERED: fentaNYL (PF) 50 MCG/ML 2 ML AMP IVP ONE (07:36)
[2023-06-23] MEDS ORDERED: LIDOCAINE 1% INJ 10MG/ML (20 ML MDV) SQ ONE (07:37)
[2023-06-23] MEDS ORDERED: VERAPAMIL SYRINGE (5 MG/10 ML) INTRAARTER ONE (07:38)
[2023-06-23] MEDS ORDERED: HEPARIN SODIUM 1,000 UN/ML (10ML VL) IV ONE (07:41)
[2023-06-23] MEDS ORDERED: IOPAMIDOL-370 100ML BTL INJ ONE (07:48)
--- NOTE | 2023-06-23 09:04 | CC ---
CARDIAC CATHETERIZATION REPORT Left heart catheterization and coronary angiogram. INDICATION: Unstable angina. PROCEDURE NOTE: After obtaining informed consent, left heart catheterization and coronary angiogram were performed via the right radial artery using standard Fanny catheters. The patient tolerated the procedure well without any obvious immediate complications. FINDINGS: Right radial artery access was obtained using Seldinger technique. A 6-Vincentian sheath was placed. Catheters and wires were floated into the ascending aorta under fluoroscopic guidance. The patient received moderate conscious sedation. Total sedation time was 20 minutes. Received verapamil and heparin per protocol. TR band will be used for hemostasis. FINDINGS: HEMODYNAMICS: 1. Left ventricular end-diastolic pressure is 18 mm. There is no significant gradient across the aortic valve. 2. Left ventriculogram: Left ventriculogram is not performed. ANGIOGRAPHIC DATA: Right coronary artery: Right coronary artery is a large dominant vessel that was previously stented in the proximal portion. The stent appears patent with mild nonobstructive disease involving mid RCA. Left main coronary artery appears heavily calcified but is free of stenosis. It divides into left anterior descending coronary artery and circumflex coronary artery. LAD appears heavily calcified with a moderate area of atherosclerotic plaque in its midportion. There are no known focal significant obstructive lesions noted. CONCLUSIONS: Patent stent within the right coronary artery, calcified left coronary system with moderate atherosclerotic plaque in the mid LAD which remains unchanged compared to which appears very similar to an angiogram done in 2020. PLAN: I reviewed angiographic data with Dr. Jean, the import export agent who performed his previous intervention and the plan is to treat him with optimal medical therapy at this time. The patient does not need any percutaneous intervention. MMODL / IJN: [id number] /
[2023-06-23 10:55] VITALS: BP 125/69; PULSE 60
== END 2023-06-23 12:07 | disposition home or self-care (01) ==
LOC: CATHCVL 05:56
PROVIDERS: ATTEND Internal Medicine Cardiovascular Disease
DX: I25.10 Atherosclerotic heart disease of native coronary artery without angina pectoris (principal); I10 Essential (primary) hypertension; E78.5 Hyperlipidemia, unspecified; F17.210 Nicotine dependence, cigarettes, uncomplicated; Z79.82 Long term (current) use of aspirin; Z91.09 Other allergy status, other than to drugs and biological substances; Z79.899 Other long term (current) drug therapy
CPT/HCPCS: 93458; C1769; C1894; J2250; J2001; J3010; J1644; Q9967